=== PATIENT | male | born 1995 | race Caucasian/White ===

== ENCOUNTER 2018-12-28 16:08 | Emergency (ER) | payer MEDICAID, OTHER ==
[2018-12-28] MEDS: KETOROLAC 30 MG INJ IM (17:01)
[2018-12-28] MEDS: DEXAMETHASONE 10 MG/ML 1 ML INJ IM (17:01)
== END 2018-12-28 17:23 | disposition home or self-care (01) ==
LOC: FTE 16:08
DX: M54.42 Lumbago with sciatica, left side (principal)
CPT/HCPCS: 96372; 99284-25